=== PATIENT | female | born 1985 | race Caucasian/White ===

== ENCOUNTER 2024-02-03 13:44 | Observation (INO) | payer OTHER, SELFPAY ==
[2024-02-03] VITALS (14 sets, daily range): BP systolic 87–119; BP diastolic 55–74; PULSE 46–84; RESP 16–18; TEMP 36.4–37.6; O2SAT 98–100; BMI 23.9
[2024-02-03 15:13] LABS: Absolute Lymphocyte Count 2.37 X10^3/uL (0.83-4.51); Absolute Neutrophil Count 17.6 X10^3/uL (2.0-7.7); Basophil# 0.03 X10^3/uL; Basophil% 0.1 % (0-1); Eosinophil# 0.03 X10^3/uL; Eosinophils% 0.1 % (0-5); Hematocrit 43.8 % (37-47); Hemoglobin 14.6 g/dL (12.0-15.0); Lymphocyte # 2.37 X10^3/ul (0.83-4.51); Mean Corp Hgb Conc 33.3 g/dL (32-36); Mean Corpuscular Hgb 30.2 pg (27.0-32.0); Mean Corpuscular Volume 90.7 fL (81-99); Monocyte# 1.51 X10^3/uL; NRBC Flagged by Analyzer 0 % (0-5); Neutrophil # 17.62 X10^3/uL (2.7-7.7); Neutrophil % 81.5 % (47-70); POSITIVE DIFFERENTIAL YES; Platelet Count 263 K/mm3 (150-450); RBC Distribution Width CV 12.5 % (11.6-14.6); RBC Distribution Width SD 41.3 fl (35.1-43.9); Red Blood Count 4.83 M/mm3 (4.2-5.4); White Blood Count 21.6 K/mm3 (4.4-11.0)
[2024-02-03 15:15] LABS: Differential Indicated SCAN CRITERIA MET
[2024-02-03 15:25] LABS: Internal QC Validated? YES +Cl - CLEAR BKGD; Pregnancy, Serum, hCG Quali. NEGATIVE Negative; Record Kit Lot#, Serum Preg. 772476
[2024-02-03 15:32] LABS: ALB/GLOB Ratio 1.2 RATIO (0.9-2.4); AST(SGOT) 12 U/L (15-37); Alanine Aminotransfer ALT/SGPT 23 U/L (13-56); Albumin, Serum 4.2 g/dL (3.2-5.0); Alkaline Phosphatase 48 U/L (45-117); Anion Gap 5 (5-15); BUN 12 mg/dL (7-18); BUN/Creat Ratio 11.1 RATIO (10-20); Calcium,Total 9.5 mg/dL (8.5-10.1); Chloride 105 mmol/L (98-107); Creatinine, Serum 1.08 mg/dL (0.55-1.02); EST Glomerular Filtration Rate 61 mL/min (>60); Est Glom Filt Rate - Afr Amer 74 mL/min (>60); Estimated Creatinine Clearance 75.26 ml/min; Globulin 3.5 g/dL (2.2-4.2); Glucose 104 mg/dL (74-106); Potassium 3.6 mmol/L (3.5-5.1); Protein, Total 7.7 g/dL (6.4-8.2); Sodium Level 138 mmol/L (136-145)
[2024-02-03 16:07] LABS: Anisocytosis RARE; Macrocytosis RARE; Platelet Estimate ADEQUATE (ADEQ); Red Cell Morphology N CHROM NORMAL (NORM C&C)
--- NOTE | 2024-02-03 16:27 | CT_ITS ---
STUDY: CT ABDOMEN AND PELVIS WITH CONTRAST REASON FOR EXAM: Female, 38 years old. RLQ pain RADIATION DOSAGE (If Supplied By Facility): CTDIvol = ( 12.64 ) mGy, DLP = ( 646.97 ) mGycm TECHNIQUE: Transaxial images were obtained from the dome of the diaphragm to the symphysis pubis without oral contrast. IV 100mL Isovue-300 was administered. Sagittal and coronal images were reconstructed. Individualized dose optimization techniques were used for this CT. COMPARISON: None. FINDINGS: The visualized lung bases are unremarkable. The visualized portions of the heart are within normal limits. Normal liver. Normal gallbladder and extrahepatic biliary system. Normal spleen. Normal pancreas. Normal bilateral adrenal glands. Normal right kidney. Normal left kidney. Normal visualized stomach. Normal small intestine. Normal colon. The appendix is fluid distended with slightly thickened wall and adjacent mesenteric stranding. Appendicitis is suspected in the proper clinical settings.. Normal abdominal aorta. Normal inferior vena cava. Normal retroperitoneum. Normal urinary bladder. Moderate pelvic fluid. Normal abdominal wall. Normal osseous structures. CT/Abdomen/Pelvis W IV Cont ONLY IMPRESSION: Appendicitis is suspected in the proper clinical settings.. Moderate pelvic fluid. Electronically Signed: Bryce Kent DO at 17:22 EDT ,
[2024-02-03] MEDS: 0.9% Normal Saline (1000mL) 1,000 ML 999 ML IV (16:38)
[2024-02-03 17:29] LABS: Mucous, Urine 0 SEEN /hpf (<or=2+); Red Blood Cells-Urine 0 SEEN /hpf (0-5); Squamous Epithelial Cells - UA 0 SEEN /hpf (5-10); White Blood Cells 0 SEEN /hpf (0-5)
[2024-02-03 17:36] LABS: Color, Urine Straw (Yellow); Glucose, Dipstick Normal (Normal); Ketone-Dipstick Negative (Negative); Leukocyte Esterase-Dipstick Negative /ul (Negative); Nitrite-Dipstick Negative (Negative); Occult Blood-Urine 10 /ul (Negative); Protein-Dipstick Negative (Negative); Specific Gravity, Urine 1.005 (1.002-1.030); Urine Bilirubin Dipstick Negative (Negative); Urine Clarity Clear (Clear); Urine Urobilinogen Normal (Normal)
--- NOTE | 2024-02-03 17:36 | EX.ED.DYSGE1 ---
HPI History of Present Illness Chief Complaint: Abd Pain Narrative Narrative: Patient is a 38-year-old female with no known significant past medical history who presents to the emergency department with a chief complaint of right lower quadrant abdominal pain. Patient states that last night around 10 PM she developed significant pain and then developed vomiting secondary to the pain she states. Patient states that things were not improving today and she got on the Internet and there read that she could have appendicitis prompting her here for further evaluation management. States that when she is sitting and resting her pain is a 4 out of 10 and when she attempts to move her pain increases to a 10 out of 10. Patient denies any recent abdominal surgeries. PFSH PFS Medical History no medical history Home Medications ?Medication ?Instructions ?Recorded ?Last Taken ?Type NK 02/03/24 Unknown History Allergy/AdvReac Type Severity Reaction Status Date / Time No Known Allergies Allergy Verified 02/03/24 13:45 Family History no significant family his Surgical History no surgical history Social History Smoking Status: Never smoker ROS ROS ED ROS Narrative Constitutional: Denies any fevers, chills, headaches, lightness, dizziness Eyes: Denies double vision blurry vision change in vision Cardiovascular: Denies chest pain or palpitations Respiratory: Denies coughing wheezing shortness of breath Abdomen: Complains of abdominal pain and vomiting as noted above denies diarrhea : Denies any painful urination, hematuria, polyuria Neurological: Denies numbness, weakness, tingling Musculoskeletal: Denies back pain Skin: Denies rashes or lesions EXAM Physical Exam Narrative Exam Narrative: General: Patient was lying in bed rest comfortably did not appear to be in acute distress Head: Atraumatic, normocephalic Eyes: PERRL bilateral, EOMI bilateral, no conjunctival injection noted Neck: Soft, supple, trachea midline Cardiovascular: Regular rate and rhythm no murmurs gallops rubs noted Respiratory: Clear to auscultation bilaterally no rales rhonchi or wheezes noted Abdomen: Soft, nondistended, tender to palpation in the right lower quadrants, bowel sounds present x 4 Extremities: +5/5 strength noted in the bilateral upper and lower extremities Neurological: Patient following commands knew that she was at [facility] year is 2023 Skin: Warm, dry, intact Const Vital Signs: 02/03/24 13:45 02/03/24 16:04 Temperature 97.5 F L 97.5 F L Temperature Source Temporal Temporal Pulse Rate 76 75 Respiratory Rate 18 16 Blood Pressure 98/74 96/71 Blood Pressure Mean 82 79 Pulse Ox 98 99 Oxygen Delivery Method Room Air MDM MDM MDM Narrative Medical decision making narrative: Patient is a 38-year-old female who presents to the emergency department the chief complaint of abdominal pain. On the differential diagnose includes but not limited to appendicitis, ectopic , ovarian torsion, UTI. Once workup is obtained reviewed she will be reevaluated. Patient CBC reviewed and was significant for leukocytosis of 21,000, hemoglobin stable 14.6, platelet count normal at 263. Patient sodium normal at 138, potassium low at 3.6, creatinine was normal at 1.08. Patient's AST and ALT were 12 and 23 respectively. Patient's test was negative urinalysis pending. Patient CT abdomen pelvis with IV contrast reviewed and appendicitis is suspected given her clinical exam and her leukocytosis highly likely that she has appendicitis therefore she was given Zosyn Case will be discussed with general surgery. Discussed case with Dr. Ernestine Torres who states that he will take the patient to the OR in about an hour and a half. I did notify the patient of this plan she is agreeable this plan all question concerns were answered. Lab Data Labs: Laboratory Results - last 24 hr 02/03/24 02/03/24 14:55 17:21 WBC 21.6 H RBC 4.83 Hgb 14.6 Hct 43.8 MCV 90.7 MCH 30.2 MCHC 33.3 RDW Std Deviation 41.3 RDW Coeff of Jade 12.5 Plt Count 263 MPV 10.0 Immature Gran % (Auto) 0.300 Neut % (Auto) 81.5 H Lymph % (Auto) 11.0 L [place] % (Auto) 7.0 Eos % (Auto) 0.1 Baso % (Auto) 0.1 Absolute Neuts (auto) 17.6 H Absolute Lymphs (auto) 2.37 Nucleated RBC % 0 Differential Comment SEE COMMENT Diff Path Review May foll Platelet Estimate ADEQUATE RBC Morphology N CHROM Anisocytosis RARE Macrocytosis RARE Sodium 138 Potassium 3.6 Chloride 105 Carbon Dioxide 28.0 Anion Gap 5 BUN 12 Creatinine 1.08 H Estim Creat Clear Calc 75.26 Est GFR (MDRD) Af Amer 74 Est GFR (MDRD) Non-Af 61 BUN/Creatinine Ratio 11.1 Glucose 104 Calcium 9.5 Total Bilirubin 1.00 AST 12 L ALT 23 Alkaline Phosphatase 48 Total Protein 7.7 Albumin 4.2 Globulin 3.5 Albumin/Globulin Ratio 1.2 Serum , Qual NEGATIVE Urine Color Straw Urine Clarity Clear Urine pH 7.0 Ur Specific [place] 1.005 Urine Protein Negative Urine Glucose (UA) Normal Urine Ketones Negative Urine Occult Blood 10 H Urine Nitrite Negative Urine Bilirubin Negative Urine Urobilinogen Normal Ur Leukocyte Esterase Negative Urine RBC 0 SEEN Urine WBC 0 SEEN Ur Squamous Epith Cells 0 SEEN Urine Bacteria RARE Urine Mucus 0 SEEN Radiography Diagnostic Testing: Clinical Impression(s) from Imaging Studies Abdomen/Pelvis CT 02/03/24 16:27 IMPRESSION: Appendicitis is suspected in the proper clinical settings.. Moderate pelvic fluid. Electronically Signed: Bryce Kent DO at 17:22 EDT Reading Location ID and State: [address] [place] [address] Tel [phone], Service support , Discharge Plan Triage Chief Complaint: Abd Pain ED Provider: Ced Wilkinson Dx/Rx/DC Orders Clinical Impression: Acute appendicitis Prescriptions: No Action NK Primary Care Provider: Care Physician,No Primary Referrals: Care Physician,No Primary [Primary Care Provider] - Print Language: [place]
[2024-02-03 18:01] LABS: Bacteria RARE /hpf (None Seen)
[2024-02-03] MEDS: Piperacil/Tazobactam 3.375 GM in 0.9% Normal Saline (50mL MB+) 50 ML IV (18:21)
--- NOTE | 2024-02-03 19:02 | PCM.PRE.AN2 ---
ASA Classification* ASA Classification ASA Classification: 2 and E Assessment & Plan Anesthesia* Anesthesia Assessment Anesthesia Assessment: Discussed sedation and/or anesthesia options, risks, benefits, and alternatives with patient/parents/legal guardian/POA. Questions invited. The patient/parents/legal guardian/POA seems to understand and agrees to proceed with anesthesia plan. Reviewed the physical assessment, medical history, allergy history and patient home medications list prior to surgery/procedure/anesthetic and documented any changes. Performed airway and anesthesia risk assessments. Anesthesia Type Anesthesia Type: General Anesthesia Focused Assessment* Temperature: 99.1 F Pulse Rate: 67 Blood Pressure: 103/67 Respiratory Rate: 16 Pulse Ox: 99 Airway Assessment Mouth opens: >3 cm Mallampati Score: II Focused Labs Anesthesia Preop lab: CBC WBC 21.6 K/mm3 (4.4-11.0) H 02/03/24 14:55 RBC 4.83 M/mm3 (4.2-5.4) 02/03/24 14:55 Hgb 14.6 g/dL (12.0-15.0) 02/03/24 14:55 Hct 43.8 % (37-47) 02/03/24 14:55 Plt Count 263 K/mm3 (150-450) 02/03/24 14:55 CHEMISTRY Potassium 3.6 mmol/L (3.5-5.1) 02/03/24 14:55 Sodium 138 mmol/L (136-145) 02/03/24 14:55 BUN 12 mg/dL (7-18) 02/03/24 14:55 Creatinine 1.08 mg/dL (0.55-1.02) H 02/03/24 14:55 Glucose 104 mg/dL (74-106) 02/03/24 14:55 COAG Pre-Assessment Diagnosis/Proposed Procedure Planned Operative Procedure(s): Laproscopic Appendectomy Anesthesia History 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 When Was Last Pacemaker Check QUESTION #4 FULL TEXT: You/Your Family Experience fever (hyperthermia) with Anesthesia Last Oral Intake Last Oral intake: Last Oral Intake NPO since 16:00 02/03/24 18:21 Meds taken in AM with sips of water? Meds patient instructed to take am of surgery PONV PONV - metallurgical engineer: PONV - metallurgical engineer Female HX of Motion Sickness HX of N/V After Surgery Non-Smoker Duration of Surgery greater than 60 minutes Number of Risk Factors PONV Score Height & Weight Height & Weight: Anesthesia: Height & Weight Height 5 ft 9 in 02/03/24 18:21 Weight: 73.618 kg 02/03/24 18:21 Body Mass Index (BMI) 23.9 02/03/24 18:21 Respiratory Assessment Respiratory Assessment - metallurgical engineer: Respiratory Tract Infection Hx - metallurgical engineer Hx Respiratory Tract Infection STOP Sleep Apnea STOP Sleep Apnea - metallurgical engineer: STOP Sleep Apnea - metallurgical engineer Hx Hypertension No 02/03/24 18:21 Hx Sleep Apnea No 02/03/24 18:21 CPAP BIPAP Do you snore loudly (louder No 02/03/24 18:21 than talking or can be heard Do you often feel tired/ No 02/03/24 18:21 fatigued/ sleepy during daytime? Has anyone observed you stop No 02/03/24 18:21 breathing during sleep? STOP Results Negative 02/03/24 18:21 QUESTION #5 FULL TEXT : Do you snore loudly (louder than talking or can be heard through closed doors)? Tobacco Use History Tobacco Use History - metallurgical engineer: Tobacco Use History - metallurgical engineer Tobacco Use Smoking Status Never smoker 02/03/24 17:18 Hx Tobacco Use Years Smoking Packs Smoked per Day Smoking Cessation Date was within the last 15 years Hx Smoking Cessation Date Hx Smoking Cessation Counseling Hematologic Medial History Hematologic Hx - metallurgical engineer: Hematologic Medical Hx - metallurgist helper Hx of Blood Transfusion Hx of Transfusion in last 3 Months Date of Last Transfusion (if within last 3 months) Ever experience any problems with transfusion(s)? Specify any problems Hx of Preganancy in last 3 Months Nurse Filling Out Transfusion & Questions: Date: Time: Patient unable to answer at this time (ie. confused, unrespo /Reproduction History /Reproductive History - metallurgical engineer: /Reproductive Hx- metallurgical engineer Hx Now No 02/03/24 18:21 Gestational Age (in weeks): EDC: Hx Hx Para Hx Section SAB No 02/03/24 13:45 PFSH Medical History no medical history Home Medications ?Medication ?Instructions ?Recorded ?Last Taken ?Type NK 02/03/24 Unknown History Allergy/AdvReac Type Severity Reaction Status Date / Time No Known Allergies Allergy Verified 02/03/24 13:45 Family History no significant family his Surgical History no surgical history Social History Smoking Status: Never smoker Review of Systems (Anesthesia) ROS Narrative System reviewed and no additional complaints, except as documented.
--- NOTE | 2024-02-03 19:05 | HP.PCM.SX_ITS ---
HPI - General HPI Narrative JOSE MORENO, is a 38 F who presents with pain since last night. She reports the pain started 10 PM yesterday. She says that she vomited all night. She is having fevers and chills. Pain is in the right lower quadrant does not radiate. Denies diarrhea. PFSH Medical History no medical history Home Medications ?Medication ?Instructions ?Recorded ?Last Taken ?Type NK 02/03/24 Unknown History Allergy/AdvReac Type Severity Reaction Status Date / Time No Known Allergies Allergy Verified 02/03/24 13:45 Family History no significant family his Surgical History no surgical history Social History Smoking Status: Never smoker ROS Constitutional Constitutional: Reports chills and fever(s); Denies anorexia or fatigue Eyes Eyes: Denies blurry vision ENT HEENT: Denies abnormal hearing Cardiovascular Cardiovascular: Denies chest pain Respiratory/Chest Respiratory/Chest: Denies cough or dyspnea Gastrointestinal Gastrointestinal: Reports abdominal pain, nausea and vomiting; Denies constipation or diarrhea Genitourinary Genitourinary: Denies difficulty urinating Musculoskeletal Musculoskeletal: Denies abnormal gait Integumentary Integumentary: Denies jaundice Neurologic Neurologic: Denies dizziness Psychiatric Psychiatric: Denies anxiety Endocrine Endocrinology: Denies flushing Hematologic/Lymphatic Hematologic/Lymphatic: Denies easy bleeding Vital Signs Vital Signs Vital Signs: 02/03/24 13:45 02/03/24 16:04 02/03/24 18:21 Temperature 97.5 F L 97.5 F L 99.1 F Temperature Source Temporal Temporal Oral Pulse Rate 76 75 Respiratory Rate 18 16 Blood Pressure 98/74 96/71 Blood Pressure Mean 82 79 Pulse Ox 98 99 Oxygen Delivery Method Room Air 02/03/24 18:25 02/03/24 19:02 02/03/24 19:03 Temperature 99.1 F Temperature Source Pulse Rate 67 67 67 Respiratory Rate 16 Blood Pressure 103/67 103/67 Blood Pressure Mean 79 Pulse Ox 99 Oxygen Delivery Method Weight Weight: 162 lb 4.8 oz Body Mass Index (BMI) 23.9 Physical Exam Const alert and oriented x3 HEENT normocephalic Eyes PERRL Resp normal respiratory effort and normal air movement Cardio regular rate and regular rhythm GI soft to palpation Palpation: tender RLQ Extremity normal to inspection Results Lab / Micro Data 02/03/24 14:55 02/03/24 14:55 Labs: Laboratory Results - last 24 hr 02/03/24 14:55: WBC 21.6 H, RBC 4.83, Hgb 14.6, Hct 43.8, MCV 90.7, MCH 30.2, MCHC 33.3, RDW Std Deviation 41.3, RDW Coeff of Jade 12.5, Plt Count 263, MPV 10.0, Immature Gran % (Auto) 0.300, Neut % (Auto) 81.5 H, Lymph % (Auto) 11.0 L, [place] % (Auto) 7.0, Eos % (Auto) 0.1, Baso % (Auto) 0.1, Absolute Neuts (auto) 17.6 H, Absolute Lymphs (auto) 2.37, Nucleated RBC % 0, Differential Comment SEE COMMENT, Diff Path Review September foll, Platelet Estimate ADEQUATE, RBC Morphology N CHROM, Anisocytosis RARE, Macrocytosis RARE, Sodium 138, Potassium 3.6, Chloride 105, Carbon Dioxide 28.0, Anion Gap 5, BUN 12, Creatinine 1.08 H, Estim Creat Clear Calc 75.26, Est GFR (MDRD) Af Amer 74, Est GFR (MDRD) Non-Af 61, BUN/Creatinine Ratio 11.1, Glucose 104, Calcium 9.5, Total Bilirubin 1.00, AST 12 L, ALT 23, Alkaline Phosphatase 48, Total Protein 7.7, Albumin 4.2, Globulin 3.5, Albumin/Globulin Ratio 1.2, Serum , Qual NEGATIVE 02/03/24 17:21: Urine Color Straw, Urine Clarity Clear, Urine pH 7.0, Ur Specific [place] 1.005, Urine Protein Negative, Urine Glucose (UA) Normal, Urine Ketones Negative, Urine Occult Blood 10 H, Urine Nitrite Negative, Urine Bilirubin Negative, Urine Urobilinogen Normal, Ur Leukocyte Esterase Negative, Urine RBC 0 SEEN, Urine WBC 0 SEEN, Ur Squamous Epith Cells 0 SEEN, Urine Bacteria RARE, Urine Mucus 0 SEEN Imaging Radiology Impression Abdomen/Pelvis CT 02/03/24 16:27 IMPRESSION: Appendicitis is suspected in the proper clinical settings.. Moderate pelvic fluid. Electronically Signed: Bryce Kent DO at 17:22 EDT Reading Location ID and State: [facility] / [place] Tel [phone], Service support , Assessment & Plan Assessment/Plan (1) Acute appendicitis: QUALIFIERS: Acute appendicitis type: unspecified acute appendicitis type Qualified Code(s): K35.80 - Unspecified acute appendicitis PLAN: The patient had marked leukocytosis as well as right lower quadrant pain and CT scan confirmed acute appendicitis. Patient was given antibiotics. I discussed this with her and recommended laparoscopic appendectomy. I discussed the surgery in detail and I discussed the risks such as bleeding, infection, injury other organ such as the bowel, bladder, ureter. Patient understands all the risks and is willing to proceed. I will admit her overnight to keep her on antibiotics because of the fever and the increased white count. Noe Cunha MD Pager: [facility] [address] [place] [address], [address] [place] [phone] Office:
--- NOTE | 2024-02-03 19:20 | APP_PTH ---
PATIENT: JOSE MORENO LOC: MS3 U#:[id number] AGE/SX: 38/F ROOM: PR315 RE02/03/[address]: Dr. Noe Cunha MD : 1985 BED: 1 DIS: 02/04/2024 SPEC #: [id number] RECD: 02/04/24 08:51 STATUS: PRITESH INFANTE #: [id number] JAMES: 02/03/24 19:[address]: Noe Cunha DEPT: SURGICAL PATHOLOGY RECD BY: Akilah Acevedo ENTERED: 02/04/24 10:46 SP TYPE: APPENDIX OT DR: No Primary Care Phys Tissues: Appendix, NOS Procedures: Surgery Specimen Level III HEADER OPERATION: Laparoscopic appendectomy PRE-OP DIAGNOSIS: Acute appendicitis TISSUE SUBMITTED: Appendix MICROSCOPIC DIAGNOSIS Appendix, appendectomy: Acute appendicitis and periappendicitis. 02/05/2024 MICROSCOPIC DESCRIPTION Slides are reviewed. GROSS DESCRIPTION Received in fixative is one container labeled with the patient's name and designated appendix. The specimen consists of a U shaped appendix measuring 6.0 cm in length and up to 0.8 cm in diameter. The attached periappendiceal adipose tissue measures up to 1.5 cm in width. The serosa is congested. No obvious perforation is identified. The mucosa is congested. No fecalith is identified. Grid Inspector sections are submitted in one cassette. / SJ:mr 02/04/2024 TC:2 CPT: 34596
[2024-02-03] MEDS: Bupiv/Epi 0.25% 30 ML Vial (19:38)
--- NOTE | 2024-02-03 19:49 | OP.PCM_ITS ---
Report of Operation Date of Procedure: 02/03/24 Pre-Operative Diagnosis: Acute appendicitis Post-Operative Diagnosis: Acute appendicitis Surgery/Procedure Performed:: Laparoscopic appendectomy Type of Anesthesia: General/Regional Specimen's removed: Appendix Estimated Blood Loss (mL): 5 Description of Procedure: The patient was brought into the operating room and general anesthesia was induced. The left arm was tucked and the abdomen was prepped and draped in usual sterile fashion. A small midline incision was made superior to the umbilicus and deepened to the level of the fascia. The fascia was elevated and incised. The peritoneum was also elevated and incised. A finger sweep was performed and a balloon trocar was placed into the abdomen and inflated. The abdomen was insufflated to 15 mmHg and the camera was inserted and the abdomen was inspected for any injuries upon entering the abdomen. There were none. The patient was placed in Trendelenburg position and a 5 mm ports placed in the left lower quadrant and suprapubic areas under direct visualization. Next using atraumatic bowel graspers the appendix was identified. The appendix was grasped and elevated and Enseal was used to take down the mesoappendix. A stapler was used to come across the base of the appendix. The appendix was then placed in Endo Catch bag and removed through the umbilical incision. The staple line was inspected and found to be hemostatic and intact. The 2 5 mm ports are removed under direct visualization. The balloon trocar was deflated and removed and all the air was removed from the abdomen. The umbilical incision fascia was closed with an 0 Vicryl [id number] suture. The incisions were then irrigated with saline and dried. Local anesthetic was injected into the incision sites. The skin incisions were then closed with interrupted 4-0 Monocryl suture and Steri- Strips. Bandages were applied and the patient was awoken and taken to PACU in stable condition. Patient tolerated the procedure well. Admit VTE Documentation VTE Mechan Device Prophylaxis: SCD's
--- NOTE | 2024-02-03 19:57 | PCM.POST.ANE ---
Anesthesia: Postop Eval I Current Vital Signs Temperature: 98.4 F Pulse Rate: 84 Blood Pressure: 87/66 Respiratory Rate: 16 Pulse Ox: 100 Oxygen Delivery Method: Room Air Assessment Airway patent: Yes Spontaneous unlabored respirations: Yes Mental status: Awake and Calm nausea: No Vomiting: No Anesthesia Complication: No Fluid Hydration Crystalloid volume administer (ml): 500 Total IV fluid infused: 500 Progress Note Anesthesia document: Postop Eval 1 completed: Yes
--- NOTE | 2024-02-03 19:58 | PCM.POSTANE2 ---
Anesthesia Postop Eval I Sum Postop Eval Completion status Anesthesia document: Postop Eval 1 completed: Yes Anesthesia Postop Eval I Summary Anesthesia Postop Eval I Summary: Anesthesia Postop Eval I: Assessment Summary Airway patent Yes 02/03/24 19:58 Spontaneous unlabored Yes 02/03/24 19:58 respirations Mental status Awake,Calm 02/03/24 19:58 nausea No 02/03/24 19:58 Vomiting No 02/03/24 19:58 Anesthesia Postop Eval I: Fluid Summary Crystalloid volume administer 500 02/03/24 19:58 (ml) Colloids volume administered ( ml) Blood Product volume administered (ml) Total IV fluid infused 500 02/03/24 19:58 Anesthesia Postop Eval I: Summary Notes Anesthesia Complication No 02/03/24 19:58 Anesthesia Complication Comment: Post-operative progress note Anesthesia: Postop Eval II Evaluation Mental status: Awake Pain Level: 1 nausea: No Vomiting: No
[2024-02-03] MEDS: 0.9% Normal Saline (1000mL) 1,000 ML 60 ML IV (21:05)
[2024-02-03] MEDS: Acetaminophen 325 MG Tablet 650 MG PO (21:06)
[2024-02-04 01:03] VITALS: BP 99/63; PULSE 70; RESP 16; TEMP 37.2; O2SAT 99
[2024-02-04] MEDS: oxyCODONE 5 MG Tablet PO ×2 (02:06→07:39)
[2024-02-04 04:04] VITALS: BP 122/74; PULSE 43; RESP 16; TEMP 37.2; O2SAT 99
[2024-02-04] MEDS: Piperacil/Tazobactam 3.375 GM in 0.9% Normal Saline (50mL MB+) 50 ML IV (06:24)
[2024-02-04 06:27] VITALS: BP 99/65; PULSE 61; RESP 16; TEMP 36.9; O2SAT 99
--- NOTE | 2024-02-04 07:35 | PCM.DC.SUM ---
Providers Date of Admission: 02/03/24 Primary Care Physician: No Primary Care Phys Reason For Visit: APPENDICITIS Diagnosis Discharge Diagnosis (1) Acute appendicitis: Status: Acute Code(s): K35.80 - Unspecified acute appendicitis Qualifiers: Acute appendicitis type: unspecified acute appendicitis type Qualified Code(s): K35.80 - Unspecified acute appendicitis Plan: The patient had marked leukocytosis as well as right lower quadrant pain and CT scan confirmed acute appendicitis. Patient was given antibiotics. I discussed this with her and recommended laparoscopic appendectomy. I discussed the surgery in detail and I discussed the risks such as bleeding, infection, injury other organ such as the bowel, bladder, ureter. Patient understands all the risks and is willing to proceed. I will admit her overnight to keep her on antibiotics because of the fever and the increased white count. Noe Cunha MD Pager: [facility] [address] [place] [address], [address] [place] [address] Office: Medications at Discharge Home Medications acetaminophen 325 mg tablet 650 mg (2 x 325 mg) PO Q4H PRN PRN Pain 1-10 Or Fever #0 tabs 02/04/24 oxycodone 5 mg tablet 5 - 10 mg (1 - 2 x 5 mg) PO Q4H PRN PRN Pain Score 4-10 5 days #20 tabs 02/04/24 Hospital Course Operations appendectomy Summary of Care Provided Hospital Course: Patient was admitted with right lower quadrant pain and taken for laparoscopic appendectomy. Following surgery the next morning she was tolerating diet but complaining of some gas pain in the right shoulder. She was then discharged home once tolerating breakfast Physical Exam Narrative Patient complained of right shoulder pain Const oriented x3 and no apparent distress Resp normal respiratory effort GI soft to palpation and non-tender Extremity normal to inspection Weight / BMI Weight Weight: 162 lb 4.163 oz Body Mass Index (BMI) 23.9 ABG / Lab / Microbiology Data 02/03/24 14:55 02/03/24 14:55 Laboratory: Laboratory Results - last 24 hr 02/03/24 14:55: WBC 21.6 H, RBC 4.83, Hgb 14.6, Hct 43.8, MCV 90.7, MCH 30.2, MCHC 33.3, RDW Std Deviation 41.3, RDW Coeff of Jade 12.5, Plt Count 263, MPV 10.0, Immature Gran % (Auto) 0.300, Neut % (Auto) 81.5 H, Lymph % (Auto) 11.0 L, Chase % (Auto) 7.0, Eos % (Auto) 0.1, Baso % (Auto) 0.1, Absolute Neuts (auto) 17.6 H, Absolute Lymphs (auto) 2.37, Nucleated RBC % 0, Differential Comment SEE COMMENT, Diff Path Review May foll, Platelet Estimate ADEQUATE, RBC Morphology N CHROM, Anisocytosis RARE, Macrocytosis RARE, Sodium 138, Potassium 3.6, Chloride 105, Carbon Dioxide 28.0, Anion Gap 5, BUN 12, Creatinine 1.08 H, Estim Creat Clear Calc 75.26, Est GFR (MDRD) Af Amer 74, Est GFR (MDRD) Non-Af 61, BUN/Creatinine Ratio 11.1, Glucose 104, Calcium 9.5, Total Bilirubin 1.00, AST 12 L, ALT 23, Alkaline Phosphatase 48, Total Protein 7.7, Albumin 4.2, Globulin 3.5, Albumin/Globulin Ratio 1.2, Serum , Qual NEGATIVE 02/03/24 17:21: Urine Color Straw, Urine Clarity Clear, Urine pH 7.0, Ur Specific Bridger 1.005, Urine Protein Negative, Urine Glucose (UA) Normal, Urine Ketones Negative, Urine Occult Blood 10 H, Urine Nitrite Negative, Urine Bilirubin Negative, Urine Urobilinogen Normal, Ur Leukocyte Esterase Negative, Urine RBC 0 SEEN, Urine WBC 0 SEEN, Ur Squamous Epith Cells 0 SEEN, Urine Bacteria RARE, Urine Mucus 0 SEEN Radiography Diagnostic Testing: Radiology Impression Abdomen/Pelvis CT 02/03/24 16:27 IMPRESSION: Appendicitis is suspected in the proper clinical settings.. Moderate pelvic fluid. Electronically Signed: Byrce Kent DO at 17:22 EDT Reading Location ID and State: [facility] / [place] Tel [phone], Service support , D/C Instructions Discharge Diet: Light diet - advance as tolerated Discharge Activity: May Not Drive (for 2-3 days or while taking narcotic pain medications.) May shower in (days): 1 Lifting Restrictions: 20 lbs for 2 weeks Call your doctor if your incision/area has: Continuous Slow Oozing, Sudden Increased Bleeding, Increased Pain/ Swelling, Increased Redness and Foul Smelling Discharge Call your doctor if you observe: Fever of 101 or Higher Suture Line Care: Avoid Pulling/Pushing and Avoid Pinching/Bending Remove Dressing in: 2 days Cleanse incision/area with: Soap & Water Additional Dressing/Incision Instructions: Keep dressing clean and dry. Change or remove dressing in 2 days. Leave steri strips for 1 week. May protect with a gauze bandaid. Please Follow Up With: Noe Cunha MD When: Please call to schedule 2 week follow up appointment. [phone] Meaningful Use Info Meaningful Use Meaningful Use Diagnoses (Choose all that apply): None applicable Ischemic Stroke Statin Dosing Therapy Reference: STATIN DOSE THERAPY REFERENCE: * Patients > 75 years receive moderate or high dose statin therapy. * Patients 75 years or YOUNGER should receive HIGH intensity statin dose unless contraindicated. You will be required to document reason for non-treatment if statin daily dose does not meet guidelines. HIGH DOSE STATIN THERAPY DAILY Atorvastatin > than or = to 40 mg Rosuvastatin > than or = to 20 mg Amlodipine + Atorvastatin > than or = to 2.5/40 mg Ezetimibe + Simvastatin 10/80 mg Simvastatin 80mg Discharge Plan Admission Admit Date/Time: 02/03/24 19:50 Attending Provider: Noe Cunha Primary Care Provider: Care Physician,Misti Primary Discharge Orders/Prescriptions Prescriptions: New acetaminophen 325 mg Tablet 650 mg PO Q4H PRN PRN (Reason: Pain 1-10 Or Fever) Qty: 0 0RF oxycodone 5 mg Tablet 5 - 10 mg PO Q4H PRN PRN (Reason: Pain Score 4-10) 5 Days Qty: 20 0RF Referrals / Follow Up: Care Physician,No Primary [Primary Care Provider] - Disposition Disposition (needs filled in before D/C Order can be placed): Home, Self Care
[2024-02-04] MEDS: Acetaminophen 325 MG Tablet 650 MG PO (07:40)
--- NOTE | 2024-02-04 10:16 | CASEMGMT ---
CARMEN CM into pt room, pt provided with a pamphlet of local healthcare providers as pt does not have a PCP. Pt denies any homegoing needs at this time.
--- NOTE | 2024-02-04 10:17 | PHA.DC.MC.R ---
Pharmacy [facility] Service has performed discharge medication reconciliation and counseling for this patient. 1. ACETAMINOPHEN 650MG PO Q4H PRN PAIN 2. OXYCODONE 5-10MG PO Q4H PRN PAIN The patient's discharge medication list was reviewed for discrepancies and discrepancies were resolved. The patient was counseled on the following discharge medications and changes in medications for homegoing were reviewed. The Reason for Use, instructions for use, and potential side effects were reviewed for all new medications. The patient's questions regarding all of their medications were answered. The patient was able to verbally demonstrate an understanding of their discharge medications. Medications at Discharge Home Medications acetaminophen 325 mg tablet 650 mg (2 x 325 mg) PO Q4H PRN PRN Pain 1-10 Or Fever #0 tabs 02/04/24 oxycodone 5 mg tablet 5 - 10 mg (1 - 2 x 5 mg) PO Q4H PRN PRN Pain Score 4-10 5 days #20 tabs 02/04/24
[2024-02-04 11:42] LABS: Pathologist Review Reviewed
== END 2024-02-04 11:18 | disposition home or self-care (01) ==
LOC: ED 18:07 → SDC 18:19 → AC 18:20 → SDC 20:11 → MS3 20:11
PROVIDERS: Admitting Provider Surgery; Emergency Provider Emergency Medicine; Referring Provider Surgery; Visit Provider Surgery
PROC: 0DTJ4ZZ Resection of Appendix, Percutaneous Endoscopic Approach (ICD-10-PCS; CPT 44970; principal; 2024-02-03 19:00)
DX: K35.80 Unspecified acute appendicitis (principal)
CPT/HCPCS: 44970; 00840; 74177; 80053; 81001; 84703; 85025; 88304; 96361; 96365; 96366; 99221; 99283; J7030; Q9967; A4216; C1760; G0378; J2405